=== PATIENT | male | born 2000 | race Two or more races ===

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

== ENCOUNTER 2022-01-08 20:37 | Emergency (ER) | payer OTHER ==
[~2022-01-08 20:37] MED LIST changes: +DOXY100T PO
== END 2022-01-08 21:41 | disposition left against medical advice (07) ==
LOC: ER 20:37
DX: M79.605 Pain in left leg (principal); Z53.21 Procedure and treatment not carried out due to patient leaving prior to being seen by health care provider